=== PATIENT | female | born 1970 | race Caucasian/White ===

== ENCOUNTER 2016-03-25 10:49 | Emergency (ER) | payer SELFPAY ==
[~2016-03-25] VITALS: Ht 162.6 cm; Wt 50.3 kg
[2016-03-25 11:03] VITALS: BP 113/66
[2016-03-25] MEDS ORDERED: TERB250T8 PO (12:26)
[2016-03-25] MEDS ORDERED: SULF1TAB24 PO (12:26)
--- NOTE | 2016-03-25 12:27 | PHYS DOC ---
Past Medical History Past Medical History: Other Additional Past Medical Histor: lupus Past Surgical History: , Tonsillectomy Additional Past Surgical Histo: right hand surgery Smokin Pack Per Day Alcohol Use: Rarely Drug Use: None Adult General Chief Complaint Chief Complaint: ABSCESS HPI HPI Patient is a 45 year old female who presents with 2 scalp abscesses. She reports the worse one developed 3-4 days ago. She has expressed purulent drainage from the wound at home. The other wound has been present for approximately 6 months. It was abscessed previously but resolved spontaneously with expression of the purulent material. She continues to have itching in the area of the older wound and no hair growth in that area. She denies fevers. She sees a PCP in [place], [place]. Review of Systems Review of Systems Constitutional: Denies fever or chills. [] Musculoskeletal: Denies back pain or joint pain. [] Integument: Reports scalp rash and abscesses. Neurologic: Denies headache, focal weakness or sensory changes. [] Allergies Allergies Allergies Coded Allergies Type Severity Reaction Last Updated Verified penicillin Allergy Unknown 11/05/14 No povidone-iodine Allergy Unknown 11/05/14 No Physical Exam Physical Exam Constitutional: Well developed, well nourished, no acute distress, non-toxic appearance. [] HENT: Normocephalic, atraumatic, oropharynx moist. [] Eyes: PERRLA, EOMI, conjunctiva normal, no discharge. [] Neck: Normal range of motion, no tenderness, supple, no stridor. [] Skin: Warm, dry. There is a 3cm circular area of alopecia on the left parietal scalp with raised edges. There is a 2cm area of alopecia on the right occipital scalp with raised edges and a 1cm abscess on the medial side with spontaneous purulent drainage. Back: No midline tenderness, no CVA tenderness. [] Neurologic: Alert and oriented X 3, normal motor function, normal sensory function, no focal deficits noted. [] Psychologic: Affect normal, judgement normal, mood normal. [] Current Patient Data Vital Signs Vital Signs Date Time Temp Pulse Resp B/P Pulse Ox O2 Delivery O2 Flow Rate FiO2 03/25/16 11:03 98.1 87 18 100 Room Air 98.1 EKG EKG [] Radiology/Procedures Radiology/Procedures [] Course & Med Decision Making Course & Med Decision Making Pertinent Labs and Imaging studies reviewed. (See chart for details) The patient left prior to receiving her discharge instructions or prescriptions. Dragon Disclaimer Dragon Disclaimer This electronic medical record was generated, in whole or in part, using a voice recognition dictation system. Departure Departure Impression: Primary Impression: Scalp abscess Additional Impression: Tinea capitis Disposition: 01 HOME, SELF-CARE Condition: STABLE Referrals: NO PCP (PCP) Patient Instructions: Abscess, [id number], Ringworm - Scalp, [id number] Additional Instructions: You were seen for a skin infection related to ringworm of the scalp. Please complete all the prescribed medications. Please follow-up with a primary care provider for blood draw for check of your liver function tests, as the medication for the ringworm can cause increase in the liver function. Return to the emergency department if you have any new or concerning symptoms. Scripts Terbinafine Hcl 250 Mg Tablet1 Tab PO DAILY #30 TAB Prov:ABDIEL GOOD 03/25/16 Sulfamethoxazole/Trimethoprim (Bactrim Ds Tablet)1 Each Tablet1 Tab PO BID #14 TAB Prov:ABDIEL GOOD 03/25/16 Problem Qualifiers ABDIEL GOOD Mar 25, 2016 12:27
== END 2016-03-25 12:33 | disposition home or self-care (01) ==
LOC: ER 10:49
DX: L02.811 Cutaneous abscess of head [any part, except face] (principal); B35.0 Tinea barbae and tinea capitis; F17.200 Nicotine dependence, unspecified, uncomplicated; Z88.1 Allergy status to other antibiotic agents; Z91.041 Radiographic dye allergy status
CPT/HCPCS: 99283

== ENCOUNTER 2016-07-04 11:54 | Emergency (ER) | payer SELFPAY ==
[~2016-07-04] VITALS: Ht 163.8 cm; Wt 48.5 kg
[~2016-07-04 11:54] MED LIST: SULF1TAB24 PO; TERB250T8 PO
[2016-07-04 12:45] VITALS: BP 115/79
--- NOTE | 2016-07-04 12:52 | RAD ---
Right knee radiographs History: Pain from falling over boxes previous day. Comparison: None. Findings: AP, lateral, oblique, and merchant view of the right knee. No acute fracture or dislocation is identified. Fabella is noted. Impression: No acute osseous traumatic injury identified.
[2016-07-04] MEDS ORDERED: NAPR500T8 PO (13:28)
--- NOTE | 2016-07-04 13:29 | PHYS DOC ---
Past Medical History Past Medical History: Other Additional Past Medical Histor: lupus Past Surgical History: , Tonsillectomy Additional Past Surgical Histo: right hand surgery Alcohol Use: Rarely Drug Use: None Adult General Chief Complaint Chief Complaint: KNEE INJURY HPI HPI Patient is a 45 year old female with history of lupus who presents with sharp mild right medial knee pain that began 3 days ago after she twisted her knee. Patient states the pain is worse when she tries to put weight on the right lower extremity. Review of Systems Review of Systems Constitutional: Denies fever or chills [] Eyes: Denies change in visual acuity, redness, or eye pain [] Musculoskeletal: Right knee pain Integument: Denies rash or skin lesions [] Neurologic: Denies headache, focal weakness or sensory changes [] Endocrine: Denies polyuria or polydipsia [] Allergies Allergies Allergies Coded Allergies Type Severity Reaction Last Updated Verified penicillin Allergy Unknown 11/05/14 No povidone-iodine Allergy Unknown 11/05/14 No Physical Exam Physical Exam Constitutional: Well developed, well nourished, no acute distress, non-toxic appearance. [] HENT: Normocephalic, atraumatic, bilateral external ears normal, oropharynx moist, no oral exudates, nose normal. [] Eyes: PERRLA, EOMI, conjunctiva normal, no discharge. [] Skin: Warm, dry, no erythema, no rash. [] Back: No tenderness, no CVA tenderness. [] Extremities: Right anterior knee with small amount of soft tissue swelling. Tenderness on palpation of right medial knee. Full range of motion to the right knee. Negative Torri sign negative Torri sign negative anterior-posterior drawer sign to the right knee. +2 right pedal pulse. Cap refill less than 2 seconds the right lower extremity. Sensation intact with the right lower extremity. Neurologic: Alert and oriented X 3, normal motor function, normal sensory function, no focal deficits noted. [] Psychologic: Affect normal, judgement normal, mood normal. [] Current Patient Data Vital Signs Vital Signs Date Time Temp Pulse Resp B/P Pulse Ox O2 Delivery O2 Flow Rate FiO2 07/04/16 12:45 97.6 79 16 99 Room Air 97.6 EKG EKG [] Radiology/Procedures Radiology/Procedures []PROCEDURE: KNEE RIGHT 4V Right knee radiographs History: Pain from falling over boxes previous day. Comparison: None. Findings: AP, lateral, oblique, and merchant view of the right knee. No acute fracture or dislocation is identified. Fabella is noted. Impression: No acute osseous traumatic injury identified. DICTATED and SIGNED BY: LUIS WOO MD DATE: 07/04/16 1249 CC: YSL LEE APRN; NO PCP ~ Course & Med Decision Making Course & Med Decision Making Pertinent Labs and Imaging studies reviewed. (See chart for details) Patient is in the ED complaining of right knee pain. She twisted it three days ago. Right knee x-rays interpreted by radiologist were negative for any acute findings. She probably has right knee sprain. Immobilizer applied to the right knee by the ED RN, neurovascular exam done by me is normal, cap refill less than 2 seconds. Ice elevation encouraged. Follow-up with orthopedic doctor in a week. Dragon Disclaimer Dragon Disclaimer This electronic medical record was generated, in whole or in part, using a voice recognition dictation system. Departure Departure Impression: Primary Impression: Right knee sprain Disposition: 01 HOME, SELF-CARE Condition: STABLE Referrals: NO PCP (PCP) JOHAN HAYWOOD MD Follow-up with orthopedic doctor in one week Patient Instructions: Knee Sprain Additional Instructions: You were seen for right knee sprain. Wear the immobilizer as needed and tolerated. Ice and elevate the extremity. You can bear weight on the right lower extremity as tolerated. Follow-up with orthopedic doctor in one week if pain continues. Scripts Naproxen 500 Mg Tablet.dr1 Tab PO BID #60 TAB Ref 2 Prov:SYL LEE APRN 07/04/16 Problem Qualifiers Primary Impression: Right knee sprain Encounter type: initial encounter Involved ligament of knee: unspecified ligament Qualified Code: S83.91XA - Sprain of unspecified site of right knee, initial encounter SYL LEE APRN Jul 04, 2016 13:29
== END 2016-07-04 13:43 | disposition home or self-care (01) ==
LOC: ER 11:54
DX: S83.91XA Sprain of unspecified site of right knee, initial encounter (principal); Z88.0 Allergy status to penicillin; Z91.041 Radiographic dye allergy status; M32.9 Systemic lupus erythematosus, unspecified; X58.XXXA Exposure to other specified factors, initial encounter; Y93.89 Activity, other specified; Y92.89 Other specified places as the place of occurrence of the external cause; Y99.8 Other external cause status
CPT/HCPCS: 29505; 73564; 99284-25

== ENCOUNTER 2016-10-31 21:30 | Emergency (ER) | payer SELFPAY ==
[~2016-10-31] VITALS: Ht 162.6 cm; Wt 49.9 kg
[2016-10-31 21:30] VITALS: BP 106/68
[~2016-10-31 21:30] MED LIST changes: +NAPR500T8 PO
[2016-10-31] MEDS ORDERED: TRAM-48 PO (22:19)
[2016-10-31] MEDS ORDERED: METH4TAB2 PO (22:19)
--- NOTE | 2016-10-31 22:19 | PHYS DOC ---
Past Medical History Past Medical History: Other Additional Past Medical Histor: lupus Past Surgical History: , Tonsillectomy Additional Past Surgical Histo: right hand surgery Alcohol Use: Rarely Drug Use: None Adult General Chief Complaint Chief Complaint: KNEE SWELLING HPI HPI Patient is a 45 year old female with a history of right knee pain presents today with mild right posterior knee pain that began this evening while she was trying to crawl into bed on her knees. She states her knee rolled. She states her pain is worse on straightening the knee. Review of Systems Review of Systems Constitutional: Denies fever or chills [] Musculoskeletal: Right knee pain Integument: Denies rash or skin lesions [] Neurologic: Denies headache, focal weakness or sensory changes [] Current Medications Current Medications Current Medications Medications (Trade) Dose Ordered Sig/Jacey Start Time Stop Time Status Last Admin Dose Admin Tramadol HCl (Ultram) 50 mg 1X ONCE 10/31/16 22:15 10/31/16 22:16 UNV Allergies Allergies Allergies Coded Allergies Type Severity Reaction Last Updated Verified penicillin Allergy Unknown 11/05/14 No povidone-iodine Allergy Unknown 11/05/14 No Physical Exam Physical Exam Constitutional: Well developed, well nourished, no acute distress, non-toxic appearance. [] Skin: Warm, dry, no erythema, no rash. [] Back: No tenderness, no CVA tenderness. [] Extremities: Right knee with small amount of soft tissue swelling. No obvious deformity. Tenderness on palpation of right posterior knee. Patient able to straighten the knee with help. Full passive range of motion to the right knee. Negative Torri sign and negative Yesika's sign, negative anterior-posterior drawer sign to the right knee. +2 right pedal pulse. Cap refill less than 2 seconds the right toes. Neurologic: Alert and oriented X 3, normal motor function, normal sensory function, no focal deficits noted. [] Psychologic: Affect normal, judgement normal, mood normal. [] Current Patient Data Vital Signs Vital Signs Date Time Temp Pulse Resp B/P (MAP) Pulse Ox O2 Delivery O2 Flow Rate FiO2 10/31/16 21:30 98.2 90 16 100 Room Air 98.2 EKG EKG [] Radiology/Procedures Radiology/Procedures [] Course & Med Decision Making Course & Med Decision Making Pertinent Labs and Imaging studies reviewed. (See chart for details) Patient is in the ED with right knee pain that began while she was crawling on her knees into the bed. Right knee x-rays interpreted by Dr. Hill negative for any acute findings. Patient likely has right knee sprain. She was placed in an immobilizer in the ED by the neurophysiology tech, neurovascular exam done by me is normal , cap refill less than 2 seconds. Ice elevation encouraged. Discharged with Ultram and Medrol Dosepak and provided orthopedic doctor for follow-up. Dragon Disclaimer Dragon Disclaimer This electronic medical record was generated, in whole or in part, using a voice recognition dictation system. Departure Departure Impression: Primary Impression: Right knee sprain Disposition: HOME, SELF-CARE Condition: STABLE Referrals: NO PCP (PCP) JOHAN HAYWOOD MD Follow-up in one week Patient Instructions: Knee Sprain, [id number] Additional Instructions: You were seen for right knee sprain. Wear the immobilizer as tolerated. Ice and elevate the extremity. Follow-up with the provided orthopedic doctor in one week. Take the prescribed medicines as ordered. Scripts Methylprednisolone (MEDROL) 4 Mg Tab.ds.pk 1 PKG PO UD, #1 PKG Prov: SYL LEE APRN 10/31/16 Tramadol Hcl (ULTRAM) 50 Mg Tablet 1 TAB PO Q6HRS, #30 TAB Prov: SYL LEE APRN 10/31/16 Problem Qualifiers Primary Impression: Right knee sprain Encounter type: initial encounter Involved ligament of knee: unspecified ligament Qualified Codes: S83.91XA - Sprain of unspecified site of right knee , initial encounter SYL LEE APRN Oct 31, 2016 22:19
[2016-10-31] MEDS ORDERED: traMADol 50 MG TABLET PO ONE (22:30)
--- NOTE | 2016-11-01 08:04 | RAD ---
KNEE RIGHT 4V History:Twisted knee today, pain Comparison: 07/04/2016 Findings:3 views right knee are submitted. No acute fracture or dislocation is identified. There is no significant joint effusion. Impression: 1.No acute abnormality is identified.
== END 2016-10-31 22:32 | disposition home or self-care (01) ==
LOC: ER 21:30
DX: S83.91XA Sprain of unspecified site of right knee, initial encounter (principal); M32.9 Systemic lupus erythematosus, unspecified; Z88.0 Allergy status to penicillin; Z91.041 Radiographic dye allergy status; Y92.89 Other specified places as the place of occurrence of the external cause; Y99.8 Other external cause status; Y93.89 Activity, other specified; X50.9XXA Other and unspecified overexertion or strenuous movements or postures, initial encounter
CPT/HCPCS: 29105; 73564; 99284-25

== ENCOUNTER 2021-01-13 14:37 | Emergency (ER) | payer SELFPAY ==
[~2021-01-13] VITALS: Ht 165.1 cm; Wt 72.0 kg
[~2021-01-13 14:37] MED LIST changes: +METH4TAB2 PO; +TERB250T72 PO; -TERB250T8 PO; +TRAM-48 PO
[2021-01-13 14:50] VITALS: BP 124/68
--- NOTE | 2021-01-13 15:28 | PHYS DOC ---
Past Medical History Past Medical History: Other Additional Past Medical Histor: lupus Past Surgical History: , Tonsillectomy, Other Additional Past Surgical Histo: right hand surgery Smoking Status: Current Every Day Smoker Alcohol Use: Rarely Drug Use: None General Adult EDM: Chief Complaint: SHOULDER INJURY HPI: HPI: Patient is a 50 year old female who presents to the ED today complaining of 6 out of 10 sharp intermittent right shoulder pain that has been going on for months. 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 Patient states the pain is worse with activities especially shaving, combing hair, getting dressed. Patient states pain is better when her RUE dangles down. Patient states "I think I tore up my rotator cuff". Review of Systems: Review of Systems: Constitutional: Denies fever or chills. [] Musculoskeletal: Reports right shoulder pain Integument: Denies rash. [] Neurologic: Denies headache, focal weakness or sensory changes. [] Psychiatric: Denies depression or anxiety. [] Heart Score: C/O Chest Pain: N/A Risk Factors: Risk Factors: DM, Current or recent (<one month) smoker, HTN, HLP, family history of CAD, obesity. Risk Scores: Score 0 - 3: 2.5% MACE over next 6 weeks - Discharge Home Score 4 - 6: 20.3% MACE over next 6 weeks - Admit for Clinical Observation Score 7 - 10: 72.7% MACE over next 6 weeks - Early Invasive Strategies Allergies: Allergies: Allergies Coded Allergies Type Severity Reaction Last Updated Verified penicillin Allergy Unknown 11/05/14 No povidone-iodine Allergy Unknown 11/05/14 No Physical Exam: PE: Constitutional: Well developed, well nourished, no acute distress, non-toxic appearance. [] Skin: Warm, dry, no erythema, no rash. [] Back: No tenderness, no CVA tenderness. [] Extremities: Right shoulder with no obvious deformity, limited range of motion to the right upper extremity especially raising it above the head, adequate range of motion to the right. Adequate radial, medial, ulnar sensation to the right fingers. +2 right radial pulse. Cap refill less than 2 seconds the right fingers. Neurologic: Alert and oriented X 3, normal motor function, normal sensory function, no focal deficits noted. [] Psychologic: Affect normal, judgement normal, mood normal. [] Current Patient Data: Vital Signs: Vital Signs Date Time Temp Pulse Resp B/P (MAP) Pulse Ox O2 Delivery O2 Flow Rate FiO2 01/13/21 14:50 97.8 96 18 124/68 (86) 97 Room Air 97.8 EKG: EKG: [] Radiology/Procedures: Radiology/Procedures: []PROCEDURE: SHOULDER 2+V RIGHT INDICATION: Reason: pain for one month / Spl. Instructions: / History: COMPARISON: None. IMPRESSION: Right shoulder: 2 views obtained. Angulation of some of the right lower ribs which could be from previous fracture. Mild interstitial opacities at the right lung with haziness at right lung base. There is secondary to mild edema with atelectasis or infiltrate at the right chest base. No acute fracture or dislocation of right shoulder. Electronically signed by: Harmeet Gallegos MD (01/13/2021 3:47 PM) [id number] DICTATED and SIGNED BY: HARMEET GALLEGOS MD DATE: 01/13/21 [id number] Course & Med Decision Making: Course & Med Decision Making Pertinent Labs and Imaging studies reviewed. (See chart for details) This a 50-year-old female patient presented to the ED today complaining of right shoulder pain that began a month ago while being shackled in retirement. Right shoulder x-rays interpreted by radiologist are negative for any acute findings. Discharge to home. Follow-up with Ortho in 1 week. Sarika Disclaimer: Sarika Disclaimer: This electronic medical record was generated, in whole or in part, using a voice recognition dictation system. Departure Departure Impression: Primary Impression: Right shoulder pain Qualified Codes: M25.511 - Pain in right shoulder Disposition: 01 HOME / SELF CARE / HOMELESS Condition: STABLE Referrals: NO PCP (PCP) MATTHEW RUBIN DO follow up in one week Patient Instructions: Shoulder Pain, [id number] Additional Instructions: You were seen for right shoulder pain, your right shoulder x-rays are negative for any acute findings. You were provided a sling, wear it for comfort. Please follow-up with the provided orthopedic doctor in 1 week. SYL LEE CARE TRANSITION COORDINATOR Jan 13, 2021 15:28
--- NOTE | 2021-01-13 15:49 | RAD ---
INDICATION: Reason: pain for one month / Spl. Instructions: / History: COMPARISON: None. IMPRESSION: Right shoulder: 2 views obtained. Angulation of some of the right lower ribs which could be from prev ious fracture. Mild interstitial opacities at the right lung with haziness at right lung base. There is secondary to mild edema with atelectasis or infiltrate at the right chest base. No acute fracture or dislocation of right shoulder. Electronically signed by: Ward Gallegos MD (01/13/2021 3:47 PM) [id number]
== END 2021-01-13 16:20 | disposition home or self-care (01) ==
LOC: ER 14:37
DX: M25.511 Pain in right shoulder (principal); F17.200 Nicotine dependence, unspecified, uncomplicated; Z88.0 Allergy status to penicillin; Z91.041 Radiographic dye allergy status
CPT/HCPCS: 73030; 99283

== ENCOUNTER 2021-01-23 17:12 | Emergency (ER) | payer SELFPAY ==
[~2021-01-23] VITALS: Ht 162.6 cm; Wt 70.5 kg
[2021-01-23] MEDS ORDERED: IV NORMAL SALINE 1000ML BAG 1,000 ML IV SCH (19:45)
--- NOTE | 2021-01-23 19:52 | PHYS DOC ---
Past Medical History Past Medical History: Other Additional Past Medical Histor: lupus Past Surgical History: , Tonsillectomy, Other Additional Past Surgical Histo: right hand surgery Smoking Status: Current Every Day Smoker Alcohol Use: Rarely Drug Use: None General Adult EDM: Chief Complaint: FLU SYMPTOM HPI: HPI: Patient is a 50-year-old female who presents to the emergency department for increased shortness of breath x2 weeks. Patient was diagnosed with COVID-19 2 months ago. She reports a nonproductive cough and generalized chest tightness intermittently and left sided chest pain under her breast. She denies any current chest pain. She is also reporting a "bulge" in her upper abdomen. She denies vomiting, diarrhea, fevers, blood in her stools. She reports that she has a history of constipation her last bowel movement was last week. Her vital signs are stable and she is in no acute distress. Review of Systems: Review of Systems: Constitutional: See HPI Respiratory: See HPI Cardiovascular: See HPI GI: See HPI Heart Score: C/O Chest Pain: Yes HEART Score for Chest Pain: HEART Score for Chest Pain Response (Comments) Value History Slighlty/Non-Suspicious 0 ECG Normal 0 Age >45 - < 65 1 Risk Factors No Risk Factors 0 Troponin < Normal Limit 0 Total 1 Risk Factors: Risk Factors: DM, Current or recent (<one month) smoker, HTN, HLP, family history of CAD, obesity. Risk Scores: Score 0 - 3: 2.5% MACE over next 6 weeks - Discharge Home Score 4 - 6: 20.3% MACE over next 6 weeks - Admit for Clinical Observation Score 7 - 10: 72.7% MACE over next 6 weeks - Early Invasive Strategies Current Medications: Current Medications Medications (Trade) Dose Ordered Sig/Jacey Start Time Stop Time Status Last Admin Dose Admin Sodium Chloride 1,000 ml @ 1,000 mls/hr Q1H 01/23/21 19:45 01/23/21 20:44 UNV Allergies: Allergies: Allergies Coded Allergies Type Severity Reaction Last Updated Verified penicillin Allergy Unknown 11/05/14 No povidone-iodine Allergy Unknown 11/05/14 No Physical Exam: PE: Constitutional: Well developed, well nourished, no acute distress, non-toxic appearance. [] HENT: Normocephalic, atraumatic, bilateral external ears normal, oropharynx moist, no oral exudates, nose normal. [] Eyes: PERRL, EOMI, conjunctiva normal, no discharge. [] Neck: Normal range of motion, no stridor Cardiovascular:Heart rate regular rhythm, no murmur [] Lungs & Thorax: Bilateral breath sounds clear to auscultation, no hypoxia, no tachypnea [] Abdomen: Bowel sounds normal, soft, no tenderness, no masses, no pulsatile masses. [] Skin: Warm, dry, no erythema, no rash. [] Back: Normal range of motion Extremities: No tenderness, no cyanosis, no clubbing, ROM intact, no edema. [] Neurologic: Alert and oriented X 3, normal motor function, normal sensory function, no focal deficits noted. [] Psychologic: Affect normal, judgement normal, mood normal. [] Current Patient Data: Labs: Laboratory Tests Test 01/23/21 19:45 01/23/21 19:50 01/23/21 19:54 01/23/21 20:10 White Blood Count 8.7 x10^3/uL Red Blood Count 4.42 x10^6/uL Hemoglobin 13.9 g/dL Hematocrit 41.6 % Mean Corpuscular Volume 94 fL Mean Corpuscular Hemoglobin 31 pg Mean Corpuscular Hemoglobin Concent 33 g/dL Red Cell Distribution Width 14.0 % Platelet Count 373 x10^3/uL Neutrophils (%) (Auto) 62 % Lymphocytes (%) (Auto) 25 % Monocytes (%) (Auto) 7 % Eosinophils (%) (Auto) 4 % Basophils (%) (Auto) 1 % Neutrophils # (Auto) 5.4 x10^3/uL Lymphocytes # (Auto) 2.2 x10^3/uL Monocytes # (Auto) 0.6 x10^3/uL Eosinophils # (Auto) 0.4 x10^3/uL Basophils # (Auto) 0.1 x10^3/uL Sodium Level 137 mmol/L Potassium Level 4.4 mmol/L Chloride Level 101 mmol/L Carbon Dioxide Level 31 mmol/L Anion Gap 5 Blood Urea Nitrogen 19 mg/dL Creatinine 0.8 mg/dL Estimated GFR (Cockcroft-Gault) 75.6 BUN/Creatinine Ratio 24 Glucose Level 101 mg/dL Calcium Level 9.5 mg/dL Total Bilirubin 0.2 mg/dL Aspartate Amino Transf (AST/SGOT) 35 U/L Alanine Aminotransferase (ALT/SGPT) 51 U/L Alkaline Phosphatase 132 U/L Troponin I High Sensitivity < 4 ng/L Total Protein 8.3 g/dL Albumin 4.2 g/dL Albumin/Globulin Ratio 1.0 Urine Collection Type Unknown Urine Color Yellow Urine Clarity Clear Urine pH 5.5 Urine Specific [place] 1.015 Urine Protein Negative mg/dL Urine Glucose (UA) Negative mg/dL Urine Ketones (Stick) Negative mg/dL Urine Blood Trace Urine Nitrite Negative Urine Bilirubin Negative Urine Urobilinogen Dipstick 0.2 mg/dL Urine Leukocyte Esterase Trace Urine RBC Occ /HPF Urine WBC 1-4 /HPF Urine Squamous Epithelial Cells Mod /LPF Urine Bacteria Few /HPF Urine Mucus Slight /LPF Bedside Urine HCG, Qualitative Hcg negative Influenza Type A Antigen Negative Influenza Type B Antigen Negative Current Medications Medications (Trade) Dose Ordered Sig/Jacey Route PRN Reason Start Time Stop Time Status Last Admin Dose Admin Sodium Chloride 1,000 ml @ 1,000 mls/hr Q1H IV 01/23/21 19:45 01/23/21 20:44 DC 01/23/21 19:45 Iohexol (Omnipaque 300 Mg/ml) 75 ml 1X ONCE IV 01/23/21 20:45 01/23/21 20:46 DC 01/23/21 20:45 Info (CONTRAST GIVEN -- Rx MONITORING) 1 each PRN DAILY PRN MC SEE COMMENTS 01/23/21 20:45 01/25/21 20:44 EKG: EKG: EKG performed by ER staff at 2004 shows sinus rhythm with a rate of 74, QTC 400, no STEMI read by Dr. White at 2006 [] Radiology/Procedures: Radiology/Procedures: []PROCEDURE: PORTABLE CHEST 1V EXAMINATION: Chest radiograph. VIEWS: Single AP view of the chest COMPARISON: None INDICATION:50 years, Female, shortness of air. FINDINGS: Normal cardiomediastinal silhouette. No focal consolidation. No pleural effusion or pneumothorax. Chronic appearing right sixth, seventh, and eighth rib fractures. IMPRESSION: 1. No acute infiltrates. 2. Chronic appearing right multilevel rib fractures. Electronically signed by: Juan Dill DO (01/23/2021 9:19 PM) [facility] DICTATED and SIGNED BY: JUAN DILL DO DATE: 11/17/21 [id number] JORGE: "lump in abdomen" PROCEDURE: CT ABD PELV W/ IV CONTRST ONLY EXAM: CT Abdomen and Pelvis with IV contrast CLINICAL HISTORY: Reason: "lump in abdomen" / Spl. Instructions: [id number] 75ml / History: . COMPARISON: none TECHNIQUE: Helical CT of the abdomen and pelvis was performed following the administration of intravenous contrast. Axial, coronal and sagittal reformatted images were generated. PQRS compliance statement - One or more of the following individualized dose re duction techniques were utilized for this study: 1. Automated exposure control 2. Adjustment of the mA and/or kV according to patient size 3. Use of iterative reconstruction technique FINDINGS: Lower Chest: Visualized lung bases are clear. Abdomen and Pelvis: Liver, partially decompressed gallbladder, spleen, adrenals, and pancreas are unremarkable. A small splenule within the splenic hilum. Small subcentimeter hypoattenuating focus in the right superior pole, too small to characterize favoring a benign renal cyst. Kidneys are otherwise unremarkable. No nephrolithiasis or hydronephrosis. Stomach is unremarkable. No evidence of bowel obstruction or focal wall thickening. Appendix is normal. Minimal sigmoid diverticulosis without diverticulitis. No free intra-abdominal air or free fluid. No pathologically enlarged abdominal or pelvic lymph nodes. Minimal aortobiiliac atherosclerotic disease. Uterus is partially decompressed but unremarkable in appearance. Normal- appearing uterus is present. No suspicious adnexal masses. Small fat-containing umbilical hernia. Likely old calcified granulomas over bilateral posterior flanks. Bones: No acute or suspicious osseous abnormalities. IMPRESSION: 1. No acute abnormality in the abdomen or pelvis. 2. Incidental findings, as above. Electronically signed by: Juan Dill DO (01/23/2021 9:46 PM) [facility] DICTATED and SIGNED BY: JUAN DILL DO DATE: 01/23/[id number] 0 Course & Med Decision Making: Course & Med Decision Making Pertinent Labs and Imaging studies reviewed. (See chart for details) [] Patient presents to the emergency department for shortness of breath, nonproductive cough and a "bulge" in her upper abdomen x2 weeks. Work-up in the ER consisted of blood work, urinalysis, EKG, chest x-ray and CT imaging of abdomen and pelvis. Patient treated with IV fluids. CBC and CMP unremarkable. Patient's heart score is 1, her chest pain has been intermittent for 2 weeks therefore does not require serial troponins. Patient's Covid test is pending. She is negative for influenza. UTI show on urinalysis. Chest x-ray and CT imaging of abdomen and pelvis unremarkable. Patient be discharged home with an antibiotic to treat the UTI. She was advised to self isolate until she receives the Covid test. Discharged home with an albuterol inhaler to help with her sh ortness of breath and tessalon perle for cough. Advised to follow-up with her primary care provider. I discussed with patient all findings and diagnostic testing as well as the need to follow-up with PCP for further evaluation and treatment or return to the ER if any new or worsening symptoms. Strict return precautions were also discussed at length. Patient voiced understanding and agreement with the plan. Patient is hemodynamically stable at the time of disposition. Dragon Disclaimer: Dragon Disclaimer: This electronic medical record was generated, in whole or in part, using a voice recognition dictation system. Departure Departure Impression: Primary Impression: Urinary tract infection Qualified Codes: N30.01 - Acute cystitis with hematuria Additional Impression: Cough Disposition: HOME / SELF CARE / HOMELESS Condition: GOOD Referrals: NO PCP (PCP) Patient Instructions: Cough, Adult, Urinary Tract Infection Additional Instructions: You were seen in the emergency department for shortness of breath and a nonproductive cough. Your blood work was unremarkable. You were noted to have a urinary tract infection. This will be treated with an antibiotic. Please start and finish this completely. Increase your fluids and avoid bladder irritants like caffeine, sugary beverages or alcohol. Your test for influenza was negative. We tested you in the ER for COVID-19 and this is pending and you will be notified via telephone of these results when they become available. Please self isolate until you receive these results. Your chest x-ray was unremarkable and CT imaging of your abdomen pelvis showed no acute findings. You are being discharged home with an albuterol inhaler that you can use as needed for shortness of breath and you are also being discharged home with the Tessalon Perles that you can take for cough. Follow-up with your primary care provider tomorrow regarding your ER visit. Return to the emergency department if you develop worsening of your shortness of breath, chest pain, rotations, dizziness, high fevers refractory to treatment, intractable nausea or vomiting or any new or worsening concerns. Scripts Benzonatate (BENZONATATE) 100 Mg Capsule 1 CAP PO TID for 7 Days, #21 CAP 0 Refills Prov: HONEY ORNELAS APRN 01/23/21 Albuterol Sulfate (PROAIR HFA INHALER) 8.5 Gm Hfa.aer.ad 2 PUFF IH PRN Q4-6HRS PRN for wheezing for 21 Days, #1 INHALER 0 Refills Prov: HONEY ORNELAS APRN 01/23/21 Nitrofurantoin Monohyd/M-Cryst (MACROBID 100 MG CAPSULE) 100 Mg Capsule 1 CAP PO BID for 5 Days, #10 CAP 0 Refills Prov: HONEY ORNELAS APRN 01/23/21 HONEY ORNELAS APRN Jan 23, 2021 19:52
[2021-01-23 19:59] LABS: BASO # 0.1 x10^3/uL (0.0-0.2); BASO % 1 % (0-3); EOS # 0.4 x10^3/uL (0.0-0.7); EOS % 4 % (0-3); HEMATOCRIT 41.6 % (36.0-47.0); HEMOGLOBIN 13.9 g/dL (12.0-15.5); LYMPH # 2.2 x10^3/uL (1.0-4.8); LYMPH % 25 % (24-48); MEAN CORPUSCULAR HEMOGLOBIN 31 pg (25-35); MEAN CORPUSCULAR HGB CONC 33 g/dL (31-37); MEAN CORPUSCULAR VOLUME 94 fL (79-100); MONO # 0.6 x10^3/uL (0.0-1.1); MONO % 7 % (0-9); NEUT # 5.4 x10^3/uL (1.8-7.7); NEUT % 62 % (31-73); PLATELET COUNT 373 x10^3/uL (140-400); RED BLOOD COUNT 4.42 x10^6/uL (3.50-5.40); WHITE BLOOD COUNT 8.7 x10^3/uL (4.0-11.0)
[2021-01-23 20:09] LABS: CALCIUM 9.5 mg/dL (8.5-10.1); CREATININE 0.8 mg/dL (0.6-1.0); GFR 75.6; POTASSIUM 4.4 mmol/L (3.5-5.1)
[2021-01-23 20:14] LABS: BILIRUBIN,URINE NEGATIVE (NEG); CLARITY,URINE CLEAR; COLOR,URINE YELLOW; NITRITE,URINE NEGATIVE (NEG); PH,URINE 5.5 (<5.0-8.0); PROTEIN,URINE NEGATIVE (NEG-TRACE); UROBILINOGEN,URINE 0.2 mg/dL (0.2 mg/dL)
[2021-01-23 20:14] LABS: ALBUMIN 4.2 g/dL (3.4-5.0); TOTAL BILIRUBIN 0.2 mg/dL (0.2-1.0); TOTAL PROTEIN 8.3 g/dL (6.4-8.2)
[2021-01-23 20:19] LABS: BACTERIA,URINE FEW /HPF (0-FEW); RBC,URINE OCC /HPF (0-2)
[2021-01-23 20:33] LABS: INFLUENZA A PATIENT NEGATIVE (NEGATIVE); INFLUENZA B PATIENT NEGATIVE (NEGATIVE)
[2021-01-23] MEDS ORDERED: IOHEXOL 300 MG/ML 100ML VIAL. IV ONE (20:45)
[2021-01-23] MEDS ORDERED: CONTRAST GIVEN. MC PRN (20:45)
--- NOTE | 2021-01-23 21:22 | RAD ---
EXAMINATION: Chest radiograph. VIEWS: Single AP view of the chest COMPARISON: None INDICATION:50 years, Female, shortness of air. FINDINGS: Normal cardiomediastinal silhouette. No focal consolidation. No pleural effusion or pneumothorax. Chr onic appearing right sixth, seventh, and eighth rib fractures. IMPRESSION: 1. No acute infiltrates. 2. Chronic appearing right multilevel rib fractures. Electronically signed by: Aaron Scott DO (01/23/2021 9:19 PM) [facility]
--- NOTE | 2021-01-23 21:48 | RAD ---
EXAM: CT Abdomen and Pelvis with IV contrast CLINICAL HISTORY: Reason: "lump in abdomen" / Spl. Instructions: [id number] 75ml / History: . COMPARISON: none TECHNIQUE: Helical CT of the abdomen and pelvis was performed following the administration of intrave nous contrast. Axial, coronal and sagittal reformatted images were generated. PQRS compliance statement - One or more of the following individualized dose reduction techniques wer e utilized for this study: 1. Automated exposure control 2. Adjustment of the mA and/or kV according to patient size 3. Use of iterative reconstruction technique FINDINGS: Lower Chest: Visualized lung bases are clear. Abdomen and Pelvis: Liver, partially decompressed gallbladder, spleen, adrenals, and pancreas are unremarkable. A small s plenule within the splenic hilum. Small subcentimeter hypoattenuating focus in the right superior cornelius e, too small to characterize favoring a benign renal cyst. Kidneys are otherwise unremarkable. No nep hrolithiasis or hydronephrosis. Stomach is unremarkable. No evidence of bowel obstruction or focal wall thickening. Appendix is sheridan l. Minimal sigmoid diverticulosis without diverticulitis. No free intra-abdominal air or free fluid. No pathologically enlarged abdominal or pelvic lymph nodes. Minimal aortobiiliac atherosclerotic dise ase. Uterus is partially decompressed but unremarkable in appearance. Normal-appearing uterus is present. No suspicious adnexal masses. Small fat-containing umbilical hernia. Likely old calcified granulomas over bilateral posterior flank s. Bones: No acute or suspicious osseous abnormalities. IMPRESSION: 1. No acute abnormality in the abdomen or pelvis. 2. Incidental findings, as above. Electronically signed by: Aaron Scott DO (01/23/2021 9:46 PM) [facility]
[2021-01-23] MEDS ORDERED: NITR100C62 PO (21:55)
[2021-01-23] MEDS ORDERED: BENZ-8 PO (21:55)
[2021-01-23] MEDS ORDERED: ALBU2.5V8 IH (21:55)
[2021-01-23 22:08] VITALS: BP 115/72
--- NOTE | 2021-01-23 22:16 | EKG ---
[facility] [address] [place] [address] Test Date: 2021-01-23 Test Time: 20:05:49 Pat Name: TANIA MCCAIN Department: Room: Gender: F Engineer/Conductor: : 1970 Requested By: HONEY ORNELAS Order Number: [id number] Reading MD: Shemar Johns Measurements Intervals [place] Rate: 74 P: 25 TX: 134 QRS: 18 QRSD: 86 T: 31 QT: 356 QTc: 400 Interpretive Statements SINUS RHYTHM Electronically Signed On 01-27-2021 9:25:57 [employer]AVE MACHINE TENDER by Shemar Johns
--- NOTE | 2021-01-24 11:24 | NUR ---
IP: Informed pt of negative covid test. Pt verbalized understanding.
== END 2021-01-23 22:23 | disposition home or self-care (01) ==
LOC: ER 17:12
DX: N30.01 Acute cystitis with hematuria (principal); Z20.822 Contact with and (suspected) exposure to COVID-19; F17.200 Nicotine dependence, unspecified, uncomplicated; Z88.0 Allergy status to penicillin; Z91.041 Radiographic dye allergy status
CPT/HCPCS: 36415; 71045; 74177; 80053; 81001; 81025; 84484; 85025; 87086; 87804; 93005; 96360; 99285; J7030; Q9967; U0003; U0005